=== PATIENT | female | born 1960 | race Caucasian/White ===

== ENCOUNTER 2020-07-03 08:14 | Outpatient (CLI) | payer MEDICARE, MEDICAID, OTHER ==
[2020-07-03 16:04] LABS: Hemoglobin 12.9 g/dL (12.0-16.0); Mean Corpuscular HGB CONC 32.2 g/dL (32.0-36.0); Mean Corpuscular Hemoglobin 31.5 pg (27.0-31.0); Mean Corpuscular Volume 97.9 fL (78.0-98.0); Platelet Count 291 thou/uL (130-400); RBC Distribution Width 12.5 % (11.5-14.5); Red Blood Cell (RBC) Count 4.09 mill/uL (4.20-5.40); White Blood Cell (WBC) Count 14.2 thou/uL (4.8-10.8)
[2020-07-03 16:56] LABS: Chloride 109 mmol/L (98-107); Potassium 3.9 mmol/L (3.5-5.1); Sodium 143 mmol/L (136-145)
[2020-07-03 16:57] LABS: Calcium 8.9 mg/dL (7.8-10.44); Glucose 104 mg/dL (80-115)
[2020-07-03 16:59] LABS: Anion Gap 16 mmol/L (10-20); Carbon Dioxide 22 mmol/L (23-31)
[2020-07-03 17:01] LABS: Calc. Creatinine Clearance 0 mL/min (70-130); Estimated GFR-MDRD 70
[2020-07-03 17:02] LABS: BUN (Urea Nitrogen) 7 mg/dL (9.8-20.1)
[2020-07-04 13:14] LABS: SARS-CoV-2 MS2 Positive; SARS-CoV-2 N Gene Negative; SARS-CoV-2 S Gene Negative; SARS-CoV-2 by NAA Not Detected (NotDetected); SARS-CoV-2 orf1ab Negative
== END 2020-07-03 08:15 | disposition home or self-care (01) ==
LOC: LABBT 08:14
PROVIDERS: ATTEND Obstetrics & Gynecology
DX: Z01.818 Encounter for other preprocedural examination (principal); Z20.828 Contact with and (suspected) exposure to other viral communicable diseases; M48.062 Spinal stenosis, lumbar region with neurogenic claudication
CPT/HCPCS: 80048; 85027; U0003; 87635; 93005; 93010

== ENCOUNTER 2020-07-10 07:36 | Outpatient (CLI) | payer MEDICARE, MEDICAID, OTHER ==
[2020-07-10 20:25] LABS: SARS-CoV-2 MS2 Positive; SARS-CoV-2 N Gene Negative; SARS-CoV-2 S Gene Negative; SARS-CoV-2 by NAA Not Detected (NotDetected); SARS-CoV-2 orf1ab Negative
== END 2020-07-10 07:37 | disposition home or self-care (01) ==
LOC: LABBT 07:36
PROVIDERS: ATTEND Neurological Surgery
DX: M48.062 Spinal stenosis, lumbar region with neurogenic claudication (principal); Z20.828 Contact with and (suspected) exposure to other viral communicable diseases
CPT/HCPCS: 87635; U0003

== ENCOUNTER 2020-07-15 07:51 | Observation (INO) | payer MEDICARE, MEDICAID ==
[2020-07-12 14:21] VITALS: BMI 19.5
[2020-07-15] MEDS ORDERED: Glycopyrrolate 0.2 MG/ML 5 ML SYRINGE ONE (09:24)
[2020-07-15] MEDS ORDERED: Lidocaine 1% PF 5 ML VIAL ONE (09:24)
[2020-07-15] MEDS ORDERED: PROPOFOL 200 MG/20 ML VIAL ONE (09:24)
[2020-07-15] MEDS ORDERED: Dexamethasone 20 MG/5 ML VIAL ONE (09:24)
[2020-07-15] MEDS ORDERED: PHENYLEPHRINE-NS 100 MCG/ML 10 ML SYRINGE ONE (09:24)
[2020-07-15] MEDS ORDERED: Rocuronium Bromide 10 MG/ML (10ML VIAL) ONE (09:24)
[2020-07-15] MEDS ORDERED: Ondansetron PF 4 MG/2 ML Vial ONE (09:24)
[2020-07-15] MEDS ORDERED: Lidocaine 2% Jelly 5 ML TUBE ONE (10:51)
[2020-07-15] MEDS ORDERED: Fentanyl 100 MCG/2 ML VIAL ONE ×4 (10:51→14:17)
[2020-07-15] MEDS ORDERED: Ondansetron HCl/PF 4 MG/2 ML Vial IVP PRN (12:40)
[2020-07-15] MEDS ORDERED: Promethazine HCl 25 MG/ML VIAL IM PRN ×2 (12:40→13:00)
[2020-07-15] MEDS ORDERED: Promethazine HCl 25 MG/ML VIAL SLOW IVP PRN (12:40)
[2020-07-15] MEDS ORDERED: Ondansetron PF 4 MG/2 ML Vial IM PRN (12:52)
[2020-07-15] MEDS ORDERED: Morphine 2 MG/ML VIAL SLOW IVP PRN (13:00)
[2020-07-15] MEDS ORDERED: Mag-Al 1200 mg/1200 mg/30 ML UDCUP PO PRN (13:00)
[2020-07-15] MEDS ORDERED: Bisacodyl 10 MG SUPP PR PRN (13:00)
[2020-07-15] MEDS ORDERED: diphenhydrAMINE 25 MG CAP PO PRN (13:00)
[2020-07-15] MEDS ORDERED: traMADol HCl 50 MG TAB PO PRN ×2 (13:00)
[2020-07-15] MEDS ORDERED: Milk Of Magnesia 30 ML UDCUP PO PRN (13:00)
[2020-07-15] MEDS ORDERED: diphenhydrAMINE 50 MG/ML VIAL IVP PRN (13:00)
[2020-07-15] MEDS ORDERED: Morphine 4 MG/ML VIAL SLOW IVP PRN (13:00)
[2020-07-15] MEDS ORDERED: Promethazine 25 MG TAB PO PRN (13:00)
[2020-07-15] MEDS ORDERED: Promethazine HCl 12.5 MG SUPP PR PRN (13:00)
[2020-07-15] MEDS ORDERED: Acetaminophen/Codeine 30-300mg Tablet PO PRN (13:00)
[2020-07-15] MEDS ORDERED: tiZANidine HCl 4 MG TAB PO PRN (13:00)
--- NOTE | 2020-07-15 13:18 | OP ---
DATE OF PROCEDURE: 07/15/2020 SUPERVISING EDITOR NEWS REEL: Selam Paz PA-C PROCEDURES PERFORMED: L3-4 posterior laminectomy, posterolateral arthrodesis, pedicle screw instrumentation L3-4, demineralized bone matrix, local morselized autograft. DESCRIPTION OF PROCEDURE: The patient was brought to the operating room and intubated. She was rolled in prone position on gel-filled chest rolls. The L3-4 level was exposed and confirmed by x-ray. There was extensive postoperative scar throughout the lower lumbar spine. We performed complete L3 laminectomy and decompressed the L3-4 interspace. A complete decompression was achieved. There was a small pinhole in the dura from one month in a prior procedure and had some CSF emanating from it. We next after complete decompression had been secured, placed pedicle screws at right L3 and right L4 using lateral fluoroscopic guidance, the position was confirmed by x-ray. A hanna was secured between the screws, connected by nuts, which were final tightened. The wound was then extensively irrigated. MAC hemostasis was secured. A combination of demineralized bone matrix and local morselized autograft was laid over the lamina and posterolateral surfaces for the purpose of arthrodesis. Vancomycin powder was applied and the wound was then closed in anatomic layers. Job ID: [id number]
[2020-07-15] MEDS: Acetaminophen/Codeine 30-300mg Tablet PO PRN ×3 (16:55→23:36)
[2020-07-15] MEDS: Sodium Chloride 0.9% 1,000 ML IV SCH (16:57)
[2020-07-15] MEDS: CEFAZOLIN 2 GM in Premix Bag 1 BAG IVPB SCH (20:09)
[2020-07-15] MEDS ORDERED: Gabapentin 400 MG CAP PO SCH (22:45)
[2020-07-15] MEDS ORDERED: Atorvastatin Calcium 10 MG TAB PO SCH (22:45)
[2020-07-16] MEDS: Sodium Chloride 0.9% 1,000 ML IV SCH (03:32)
[2020-07-16] MEDS: CEFAZOLIN 2 GM in Premix Bag 1 BAG IVPB SCH (04:13)
--- NOTE | 2020-07-16 06:53 | DIS ---
DATE OF ADMISSION: 07/15/2020 DATE OF DISCHARGE: 07/16/2020 PROCEDURE: L3-L4 decompression and fusion. DISCHARGE SUMMARY: The patient is a 60-year-old female, recently evaluated in our office for progressive back and claudicatory leg pain. She was found to have severe stenosis at L3-L4 with listhesis at this level as well. The patient who underwent L3-L4 decompression and fusion on 07/15/2020. Following the surgery, she was transitioned to the Med/Surg floor, where her pain was well controlled with p.o. medications, she was tolerating a regular diet, and she was voiding appropriately. She is not having any incisional issues. We will plan to dismiss the patient to home. I have discussed home care precautions, and she has been provided with scripts for T3, Zanaflex, and Keflex. BMP aware. Check prior to discharge. Job ID: [id number]
[2020-07-16] MEDS: Acetaminophen/Codeine 30-300mg Tablet PO PRN (07:16)
[2020-07-16] MEDS ORDERED: Gabapentin 400 MG CAP PO SCH (09:00)
[2020-07-16] MEDS ORDERED: Lisinopril/Hydrochlorothiazide 10 mg/12.5 mg Tablet PO SCH (09:00)
[2020-07-16 12:53] VITALS: BP 121/73; TEMP 99
[2020-07-16] MEDS ORDERED: Atorvastatin Calcium 10 MG TAB PO SCH (21:00)
== END 2020-07-16 13:16 | disposition home or self-care (01) ==
LOC: SDC 07:51 → SURG A 15:15
PROVIDERS: ADMIT Neurological Surgery; ATTEND Neurological Surgery
PROC: 0SG00AJ Fusion of Lumbar Vertebral Joint with Interbody Fusion Device, Posterior Approach, Anterior Column, Open Approach (ICD-10-PCS; principal; 2020-07-15)
DX: M48.062 Spinal stenosis, lumbar region with neurogenic claudication (principal); I10 Essential (primary) hypertension; E78.5 Hyperlipidemia, unspecified; I73.9 Peripheral vascular disease, unspecified; M19.90 Unspecified osteoarthritis, unspecified site; Z79.82 Long term (current) use of aspirin; Z79.899 Other long term (current) drug therapy; Z87.891 Personal history of nicotine dependence
CPT/HCPCS: 20930; 20936; 22633; 22853; 76000; 96374; 96376; 97116; 97139; C1713 ×3; C1768; G0378 ×2; J0690; J1100; J2405; J2704; J3010; J3370